=== PATIENT | male | born 1930 | race Caucasian/White ===

== ENCOUNTER → 2018-03-06 | Outpatient (CLI) | payer OTHER ==
[~2018-03-06] MED LIST: AMARYL1 MG PO; AMMONIUM LACTA225 GM; ASPIRIN81 M2 PO; GLYBURIDE 2.52.5 M1 PO; LAC-HYDRIN225 GM TOP; LASIX 20 MG TAB20 MG PO; LEVOTHYROXIN0.025 MG PO; METROGEL60 GM TOP; NITROGLYCERIN0.4 MG SUBLING; NITROSTAT0.4 M1 SL; PLAVIX 75 MG TA75 M1 PO; PRAVACHOL40 MG PO; VITAMIN D1000 UNI1 PO; VITAMIN D400 UNI2 PO; VITAMIN E400 UNIT PO
== END ==
LOC: M.RAD 14:01
DX: M19.041 Primary osteoarthritis, right hand (principal)